=== PATIENT | male | born 1970 | race Caucasian/White ===

== ENCOUNTER 2018-07-16 18:24 | Emergency (ER) | payer BC, OTHER ==
[~2018-07-16] VITALS: Ht 177.8 cm; Wt 122.5 kg
[~2018-07-16 18:24] MED LIST: ATIVAN1 MG PO; CARVEDILOL12.5 MG PO; CORTISPORIN OTI10 M2; GLUCOPHAGE500 MG PO; LISINOPRIL10 MG PO; MECLIZINE HCL25 M1 PO; PRILOSEC40 MG PO
[2018-07-16] MEDS ORDERED: GLUCOTROL5 MG PO (18:56)
[2018-07-16] MEDS ORDERED: POTASSIUM20 PO (18:57)
[2018-07-16] MEDS ORDERED: OMEGA-31000 M1 PO (18:59)
[2018-07-16] MEDS ORDERED: CRESTOR10 MG PO (18:59)
[2018-07-16] MEDS ORDERED: TRADJENTA5 MG (18:59)
[2018-07-16] MEDS ORDERED: TIZANIDINE HCL4 MG PO (20:35)
[2018-07-16 20:45] VITALS: BP 119/76
== END 2018-07-16 20:46 | disposition home or self-care (01) ==
LOC: ER 18:24
DX: S90.01XA Contusion of right ankle, initial encounter (principal); I10 Essential (primary) hypertension; E11.9 Type 2 diabetes mellitus without complications; Z88.8 Allergy status to other drugs, medicaments and biological substances; V49.49XA Driver injured in collision with other motor vehicles in traffic accident, initial encounter; Y93.89 Activity, other specified; Y92.89 Other specified places as the place of occurrence of the external cause; Y99.8 Other external cause status